=== PATIENT | female | born 1990 | race Caucasian/White ===

== ENCOUNTER 2019-03-27 03:19 | Emergency (ER) | payer OTHER ==
[~2019-03-27] VITALS: Ht 149.9 cm; Wt 54.4 kg
[~2019-03-27 03:19] MED LIST: LEVSIN/SL0.125 MG SL; PEPCID40 MG PO; ZOFRAN8 MG PO
[2019-03-27] MEDS ORDERED: MIRALAX510 GM PO (05:58)
[2019-03-27] MEDS ORDERED: LEVSIN/SL0.125 MG SL (05:58)
== END 2019-03-27 06:08 | disposition home or self-care (01) ==
LOC: ER 03:19
DX: K59.09 Other constipation (principal)